=== PATIENT | female | born 1990 | race Caucasian/White ===

== ENCOUNTER 2017-03-12 16:39 | Emergency (ER) | payer MEDICAID ==
[~2017-03-12] VITALS: Ht 157.5 cm; Wt 64.4 kg
[2017-03-12 16:53] VITALS: BP 152/99
--- NOTE | 2017-03-12 17:56 | NUR ---
Patient ambulated to bed 3 with family. RN evaluating patient at bedside.
--- NOTE | 2017-03-12 17:58 | NUR ---
27/F BIB SELF C/O ABDOMINAL PAIN & DIARRHEA X TODAY. SKIN IS PINK/WARM/DRY; AAOX4 WITH EVEN AND STEADY GAIT; LUNGS CLEAR BL; HR EVEN AND REGULAR; PT DENIES ANY FEVER, CP, SOB, OR COUGH AT THIS TIME; PATIENT STATES PAIN OF 8/10 AT THIS TIME; VSS; PATIENT POSITIONED FOR COMFORT; HOB ELEVATED; BEDRAILS UP X2; BED DOWN. ER MD MADE AWARE OF PT STATUS.
--- NOTE | 2017-03-12 18:13 | NUR ---
Dr. Choudhary evaluating patient at bedside.
--- NOTE | 2017-03-12 19:17 | NUR ---
Pt report given to THERESA Lopez . Transfer of care at this time.
--- NOTE | 2017-03-12 19:33 | NUR ---
RECEIVED REPORT FROM ALEX CARDENAS.
[2017-03-12 19:45] VITALS: BP 130/79
--- NOTE | 2017-03-12 19:45 | NUR ---
Patient discharged with v/s stable. Written and verbal after care instructions given and explained BY DR WINTER. Patient alert, oriented and verbalized understanding of instructions. Ambulatory with steady gait. All questions addressed prior to discharge. ID band removed. Patient advised to follow up with PMD. Rx of AZITHROMYCIN AND MUCINEX given. Patient educated on indication of medication including possible reaction and side effects. Opportunity to ask questions provided and answered.
== END 2017-03-12 19:45 | disposition home or self-care (01) ==
LOC: MED 16:39
DX: R10.9 Unspecified abdominal pain (principal); J42 Unspecified chronic bronchitis; J45.909 Unspecified asthma, uncomplicated
CPT/HCPCS: 71010; 81002; 81025; 99283; Q0092

== ENCOUNTER 2022-03-05 21:26 | Emergency (ER) | payer MEDICAID, OTHER ==
[~2022-03-05] VITALS: Ht 162.6 cm; Wt 74.8 kg
[2022-03-05 21:32] VITALS: BP 140/94
[2022-03-05] MEDS ORDERED: LISI20TA29 PO (21:49)
[2022-03-05] MEDS ORDERED: lisinopriL 20 MG TAB PO ONE (21:50)
--- NOTE | 2022-03-05 22:14 | NUR ---
32 YO/F PRESENTS TO ED W C/O HTN AT HOME W HEADACHE 8/10 PRESSURE INTERMITENT X2 DAYS W MOST RECENT EPISODE X2 HOURS, +BLURRY VISION AND DIZZYNESS. PT DENIES ANY CHEST PAIN, SOB, N/V/D. PT DOES NOT TAKE MEDICATION FOR HTN. PT CONNECTED TO MONITOR, BREATHING EVEN AND UNLABORED, WILL CONTINUE TO MONITOR. PMH: HTN ALLERGIES: DENIES
[2022-03-05 22:42] VITALS: BP 135/98
--- NOTE | 2022-03-05 22:42 | NUR ---
Patient discharged with v/s stable. Written and verbal after care instructions given and explained. Patient alert, oriented and verbalized understanding of instructions. Ambulatory with steady gait. All questions addressed prior to discharge. ID band removed. Patient advised to follow up with PMD. Rx of LISINOPRIL given. Patient educated on indication of medication including possible reaction and side effects. Opportunity to ask questions provided and answered.D/C COMPLETED BY .
== END 2022-03-05 22:42 | disposition home or self-care (01) ==
LOC: MED 21:26
DX: I10 Essential (primary) hypertension (principal); J45.909 Unspecified asthma, uncomplicated; Z79.899 Other long term (current) drug therapy
CPT/HCPCS: 99283